=== PATIENT | female | born 1955 | race Caucasian/White ===

== ENCOUNTER 2021-03-08 10:01 | Day surgery (SDC) | payer MEDICAID, SELFPAY ==
[2021-03-01 09:01] VITALS: BMI 33.3
--- NOTE | 2021-03-04 14:09 | MHC.SHP ---
Pre-Procedural Eval Section A Date of Service: 03/04/21 The patient is an INPATIENT: No Changes since office visit: No Cold of Flu in the past 2 weeks, No New Medical Problems, No Changes in Medication and No Patient answered all questions The History & Physical has been completed within 30 days and I have reviewed it.: Yes Section B Chief Complaint: cataract right eye Allergies: Allergies Allergy/AdvReac Type Severity Reaction Status Date / Time ipratropium Allergy Severe throat Verified 03/01/21 08:59 closed (from nasal spray) latex Allergy Intermediate Rash Verified 03/01/21 08:59 escitalopram AdvReac Intermediate Diarrhea Verified 03/01/21 08:59 lactose AdvReac Intermediate Gastrointestinal Verified 03/01/21 08:59 Upset Plan Diagnosis/Plan: Unchanged I have reviewed the history and physical and performed a pertinent physical examination on my patient. No changes have occurred unless specified.
--- NOTE | 2021-03-05 14:03 | HO.ANESPROP2 ---
Documented by User: Fadia Proctor NP 03/05/21 14:03 HPI - Anesthesia Eval Consult details Narrative: 65yo F for Right Cataract Multifocal with IOL Insertion PCP cleared No previous cataract on file PMFSH Past Medical History Medical History (Updated 03/01/21 @ 09:01 by Terri Burger RN) Anxiety COVID-19 vaccine series completed Elevated cholesterol HTN (hypertension) Osteoarthritis Phenylketonuria (PKU) Pre-diabetes Surgical History Surgical History (Updated 03/01/21 @ 09:01 by Terri Burger RN) History of bunionectomy History of total right hip arthroplasty Social History Social History Are you a primary hospice care transitions coordinator to a significant other at home: No Do you presently have visiting nurse or other home services: No Patient Tobacco Use Status: Never used Tobacco Use of substances other than those prescribed or required for medical reasons: No Have you been hit, kicked, punched, or otherwise hurt by someone within the past year? If so, by whom?: No Are you DNR?: No Advance Directives Information Provided: Yes (informational brochure mailed-advised to bring HCP copy if has) Advance Directives on File: No Recently lost weight without trying: No Eating poorly because of decreased appetite: No Nutrition Risks: No Nutritional Risk Poor oral hygiene: No Meds Allergies Allergy/AdvReac Type Severity Reaction Status Date / Time ipratropium Allergy Severe throat Verified 03/08/21 11:29 closed (from nasal spray) latex Allergy Intermediate Rash Verified 03/08/21 11:29 Penicillins [PCN] AdvReac Severe Diarrhea Verified 03/08/21 11:29 escitalopram AdvReac Intermediate Diarrhea Verified 03/08/21 11:29 lactose AdvReac Intermediate Gastrointestinal Verified 03/08/21 11:29 Upset Home Medications Medication Instructions Recorded Confirmed Last Taken Type acetaminophen 325 mg tablet 650 mg PO QID 02/26/21 03/01/21 Unknown History amlodipine 10 mg tablet 10 mg PO DAILY 02/26/21 03/01/21 Unknown History atorvastatin 10 mg tablet 10 mg PO DAILY 02/26/21 03/01/21 Unknown History cetirizine 10 mg tablet 10 mg PO DAILY 02/26/21 03/01/21 Unknown History cyanocobalamin (vitamin B-12) 1,000 mcg PO DAILY 02/26/21 03/01/21 Unknown History 1,000 mcg tablet (Vitamin B-12) docusate sodium 100 mg capsule 100 mg PO BID 02/26/21 03/01/21 Unknown History (Colace) fluticasone propionate 50 2 spray INTRANASAL DAILY 02/26/21 03/01/21 Unknown History mcg/actuation nasal spray,suspension omeprazole 20 mg tablet,delayed 20 mg PO DAILY 02/26/21 03/08/21 03/08/21 07:30 History release paroxetine HCl 10 mg tablet 10 mg PO DAILY 02/26/21 03/01/21 Unknown History polyethylene glycol 3350 17 gram 17 g PO DAILY 02/26/21 03/01/21 Unknown History oral powder packet (Miralax) sennosides 8.6 mg tablet (senna) 8.6 mg PO BEDTIME 02/26/21 03/01/21 Unknown History Exam Exam Date and Time: March 05, 2021 1403 Height,Weight and Vital Signs: Height 5 ft 1 in Weight 80 kg Assessment and Plan Assessment Anesthesia Assessment: Chart Reviewed Documented by User: Renzo Jarvis MD 03/08/21 11:50 [facility] Past Medical History Medical History (Updated 03/01/21 @ 09:01 by Terri Burger RN) Anxiety COVID-19 vaccine series completed Elevated cholesterol HTN (hypertension) Osteoarthritis Phenylketonuria (PKU) Pre-diabetes Surgical History Surgical History (Updated 03/01/21 @ 09:01 by Terri Burger RN) History of bunionectomy History of total right hip arthroplasty Social History Social History Are you a primary hospice care transitions coordinator to a significant other at home: No Do you presently have visiting nurse or other home services: No Patient Tobacco Use Status: Never used Tobacco Use of substances other than those prescribed or required for medical reasons: No Have you been hit, kicked, punched, or otherwise hurt by someone within the past year? If so, by whom?: No Are you DNR?: No Advance Directives Information Provided: Yes (informational brochure mailed-advised to bring HCP copy if has) Advance Directives on File: No Recently lost weight without trying: No Eating poorly because of decreased appetite: No Nutrition Risks: No Nutritional Risk Poor oral hygiene: No Meds Allergies Allergy/AdvReac Type Severity Reaction Status Date / Time ipratropium Allergy Severe throat Verified 03/08/21 11:29 closed (from nasal spray) latex Allergy Intermediate Rash Verified 03/08/21 11:29 Penicillins [PCN] AdvReac Severe Diarrhea Verified 03/08/21 11:29 escitalopram AdvReac Intermediate Diarrhea Verified 03/08/21 11:29 lactose AdvReac Intermediate Gastrointestinal Verified 03/08/21 11:29 Upset Home Medications Medication Instructions Recorded Confirmed Last Taken Type acetaminophen 325 mg tablet 650 mg PO QID 02/26/21 03/01/21 Unknown History amlodipine 10 mg tablet 10 mg PO DAILY 02/26/21 03/01/21 Unknown History atorvastatin 10 mg tablet 10 mg PO DAILY 02/26/21 03/01/21 Unknown History cetirizine 10 mg tablet 10 mg PO DAILY 02/26/21 03/01/21 Unknown History cyanocobalamin (vitamin B-12) 1,000 mcg PO DAILY 02/26/21 03/01/21 Unknown History 1,000 mcg tablet (Vitamin B-12) docusate sodium 100 mg capsule 100 mg PO BID 02/26/21 03/01/21 Unknown History (Colace) fluticasone propionate 50 2 spray INTRANASAL DAILY 02/26/21 03/01/21 Unknown History mcg/actuation nasal spray,suspension omeprazole 20 mg tablet,delayed 20 mg PO DAILY 02/26/21 03/08/21 03/08/21 07:30 History release paroxetine HCl 10 mg tablet 10 mg PO DAILY 02/26/21 03/01/21 Unknown History polyethylene glycol 3350 17 gram 17 g PO DAILY 02/26/21 03/01/21 Unknown History oral powder packet (Miralax) sennosides 8.6 mg tablet (senna) 8.6 mg PO BEDTIME 02/26/21 03/01/21 Unknown History Exam Airway Mallampati Class: III TM Dist: >3cm Neck ROM: Full
[2021-03-08 11:33] VITALS: BP 138/77; PULSE 70; RESP 16; TEMP 36.8; O2SAT 99
[2021-03-08] MEDS: Tetracaine HCl/PF 0.5% Oph Sol 4 ML DROPS 1 DROP EYE-RIGHT (11:50)
[2021-03-08] MEDS: Lactated Ringers 500 ML 50 ML IV (11:52)
[2021-03-08] MEDS: Tropicamide 1 % Ophth Sol 3 ML BTL 1 DROP EYE-RIGHT ×3 (11:52→12:04)
[2021-03-08] MEDS: Phenylephrine HCL 2.5% Oph SoL 2 ML BOTTLE 1 DROP EYE-RIGHT ×3 (11:56→12:08)
--- NOTE | 2021-03-08 13:10 | HO.PNOPHT ---
Ophthalmology Procedure Procedure Date of Service: 03/08/21 Ophthalmology Viscoelastic: Healsophy Patinot Dual Pack Pro Ophthalmology Lenses: TECGABRIELLA [id number] (22) Procedure Notes: PREOPERATIVE DIAGNOSIS: Decreased visual acuity right eye secondary to cataract POSTOPERATIVE DIAGNOSIS: Same PROCEDURE: Right cataract extraction with intraocular lens insertion SURGEON: Chico Espana M.D. ANESTHESIA: Topical/MAC ESTIMATED BLOOD LOSS: None COMPLICATIONS: None After obtaining informed consent, the patient was brought to the operating room suite and placed in the supine position. After adequate sedation per anesthesia, topical drops of Tetracaine were given to the right eye. The eye was then prepped and draped in the usual sterile fashion. The operating room microscope was then positioned over the operative eye and a lid speculum placed. A paracentesis was created. Viscoelastic was then instilled into the anterior chamber. A three plane incision was then created temporally, utilizing a 2.85 mm keratome. Capsulotomy forceps were then utilized to create a circular tear capsulotomy. Hydrodissection and hydrodelineation were carried out until adequate mobilization of the nucleus occurred. Phacoemulsification was then utilized to remove the dense central nucleus followed by removal of the cortical material utilizing the automated aspiration irrigation unit. Viscoelastic was instilled into the posterior capsular bag followed by placement of a posterior chamber intraocular lens without difficulty. The residual Viscoelastic was then removed utilizing the automated IA machine. The wound was checked and found to be watertight. The patient tolerated the procedure well and the lid speculum was removed. Intracameral injection of Vigamox 0.1 mL followed by a subtenon injection of Kenalog-40 0.2 mL were administered. The patient will be seen in the a.m.
[2021-03-08 13:38] VITALS: BP 138/75; PULSE 78; RESP 18; TEMP 36.1; O2SAT 97
== END 2021-03-08 13:59 | disposition home or self-care (01) ==
PROVIDERS: Visit Provider Ophthalmology
PROC: (CPT 66985; principal; 2021-03-08 12:50)
DX: H25.11 Age-related nuclear cataract, right eye (principal); H52.4 Presbyopia; I10 Essential (primary) hypertension; R73.03 Prediabetes; R26.89 Other abnormalities of gait and mobility; Z96.641 Presence of right artificial hip joint; Z79.899 Other long term (current) drug therapy; Z91.040 Latex allergy status; Z88.0 Allergy status to penicillin
CPT/HCPCS: 66984; J2250; J3010; J3300; V2632

== ENCOUNTER 2021-03-22 08:04 | Day surgery (SDC) | payer MEDICAID, SELFPAY ==
[2021-03-01 09:04] VITALS: BMI 33.3
--- NOTE | 2021-03-18 13:44 | MHC.SHP ---
Pre-Procedural Eval Section A Date of Service: 03/18/21 The patient is an INPATIENT: No Changes since office visit: No Cold of Flu in the past 2 weeks, No New Medical Problems, No Changes in Medication and No Patient answered all questions The History & Physical has been completed within 30 days and I have reviewed it.: Yes Section B Chief Complaint: cataract left eye Allergies: Allergies Allergy/AdvReac Type Severity Reaction Status Date / Time ipratropium Allergy Severe throat Verified 03/08/21 11:29 closed (from nasal spray) latex Allergy Intermediate Rash Verified 03/08/21 11:29 Penicillins [PCN] AdvReac Severe Diarrhea Verified 03/08/21 11:29 escitalopram AdvReac Intermediate Diarrhea Verified 03/08/21 11:29 lactose AdvReac Intermediate Gastrointestinal Verified 03/08/21 11:29 Upset Plan Diagnosis/Plan: Unchanged I have reviewed the history and physical and performed a pertinent physical examination on my patient. No changes have occurred unless specified.
[2021-03-22 08:43] VITALS: BP 185/91; PULSE 81; RESP 16; TEMP 36.2; O2SAT 98
[2021-03-22] MEDS: Tetracaine HCl/PF 0.5% Oph Sol 4 ML DROPS 1 DROP EYE-LEFT (08:46)
[2021-03-22] MEDS: Lactated Ringers 500 ML 50 ML IVCONT (08:46)
[2021-03-22] MEDS: Tropicamide 1 % Ophth Sol 3 ML BTL 1 DROP EYE-LEFT ×3 (08:47→08:59)
[2021-03-22] MEDS: Phenylephrine HCL 2.5% Oph SoL 2 ML BOTTLE 1 DROP EYE-LEFT ×3 (08:50→09:02)
--- NOTE | 2021-03-22 09:38 | HO.ANESPROP2 ---
HPI - Anesthesia Eval Consult details Narrative: left eye cataract [facility] Past Medical History Medical History (Updated 03/01/21 @ 09:01 by Terri Burger RN) Anxiety COVID-19 vaccine series completed Elevated cholesterol HTN (hypertension) Osteoarthritis Phenylketonuria (PKU) Pre-diabetes Family History Family history of problems with anesthesia: No Surgical History Surgical History (Updated 03/01/21 @ 09:01 by Terri Burger RN) History of bunionectomy History of total right hip arthroplasty History of Problems with Anesthesia: No Social History Social History Are you a primary healthcare translator to a significant other at home: No Do you presently have visiting nurse or other home services: No Patient Tobacco Use Status: Never used Tobacco Use of substances other than those prescribed or required for medical reasons: No Have you been hit, kicked, punched, or otherwise hurt by someone within the past year? If so, by whom?: No Are you DNR?: No Advance Directives Information Provided: Yes (informational brochure mailed-advised to bring HCP copy if has) Advance Directives on File: No Recently lost weight without trying: No Eating poorly because of decreased appetite: No Nutrition Risks: No Nutritional Risk Poor oral hygiene: No Meds Allergies Allergy/AdvReac Type Severity Reaction Status Date / Time ipratropium Allergy Severe throat Verified 03/08/21 11:29 closed (from nasal spray) latex Allergy Intermediate Rash Verified 03/08/21 11:29 Penicillins [PCN] AdvReac Severe Diarrhea Verified 03/08/21 11:29 escitalopram AdvReac Intermediate Diarrhea Verified 03/08/21 11:29 lactose AdvReac Intermediate Gastrointestinal Verified 03/08/21 11:29 Upset Active Medications: Current Medications Lactated Ringer's (Lr) 500 mls @ 50 mls/hr IVCONT .Q10H LUIS Last Admin: 03/22/21 08:46 Dose: 50 mls/hr Documented by: Povidone Iodine (Povidone Iodine 5 % Ophth Soln 30 Ml Bottle) 1 appl EYE-LEFT PREOP PRN PRN Reason: Pre-Op Surgical Implant Prophy Home Medications Medication Instructions Recorded Confirmed Last Taken Type acetaminophen 325 mg tablet 650 mg PO QID 02/26/21 03/01/21 Unknown History amlodipine 10 mg tablet 10 mg PO DAILY 02/26/21 03/01/21 Unknown History atorvastatin 10 mg tablet 10 mg PO DAILY 02/26/21 03/01/21 Unknown History cetirizine 10 mg tablet 10 mg PO DAILY 02/26/21 03/01/21 Unknown History cyanocobalamin (vitamin B-12) 1,000 mcg PO DAILY 02/26/21 03/01/21 Unknown History 1,000 mcg tablet (Vitamin B-12) docusate sodium 100 mg capsule 100 mg PO BID 02/26/21 03/01/21 Unknown History (Colace) fluticasone propionate 50 2 spray INTRANASAL DAILY 02/26/21 03/01/21 Unknown History mcg/actuation nasal spray,suspension omeprazole 20 mg tablet,delayed 20 mg PO DAILY 02/26/21 03/08/21 03/08/21 07:30 History release paroxetine HCl 10 mg tablet 10 mg PO DAILY 02/26/21 03/01/21 Unknown History polyethylene glycol 3350 17 gram 17 g PO DAILY 02/26/21 03/01/21 Unknown History oral powder packet (Miralax) sennosides 8.6 mg tablet (senna) 8.6 mg PO BEDTIME 02/26/21 03/01/21 Unknown History Exam Exam Date and Time: March 22, 2021 0938 Height,Weight and Vital Signs: Height 5 ft 1 in Weight 80 kg Last Vital Signs Temp 97.1 F 03/22/21 08:43 Pulse 81 03/22/21 08:43 Resp 16 03/22/21 08:43 BP 185/91 H 03/22/21 08:43 Pulse Ox 98 03/22/21 08:43 Airway Mallampati Class: II TM Dist: >3cm Neck ROM: Full Loose/Missing/Broken Teeth: No Heart: [id number] Lungs: cta b/l Assessment and Plan Assessment Anesthesia Assessment: Anesthesia Plan Discussed Final Anesthetic Review Family History of Problems with Anesthesia: No History of Problems with Anesthesia: No NPO: Yes ASA Class: III Final Preanesthetic Review: No Changes in Pt Med Stat, Meds/Allgs Chart Reviewed, Consent Obtained/Reviewed and Anes Risks/Benef Reviewed Patient Risk: Intermediate Procedure Risk: Low Assessment/Block/Sedation in SS: Assess/Block/Sedation-SS Anesthetic Plan Anesthetic Plan: MAC: and Agree w/ Assess. and Plan Disposition: Standard PACU
--- NOTE | 2021-03-22 10:15 | HO.PNOPHT ---
Ophthalmology Procedure Procedure Date of Service: 03/22/21 Ophthalmology Viscoelastic: Healon Duet Dual Pack Pro Ophthalmology Lenses: TECGABRIELLA [id number] (23) Procedure Notes: PREOPERATIVE DIAGNOSIS: Decreased visual acuity left eye secondary to cataract POSTOPERATIVE DIAGNOSIS: Same PROCEDURE: Left cataract extraction with intraocular lens insertion SURGEON: Chico Espana M.D. ANESTHESIA: Topical/MAC ESTIMATED BLOOD LOSS: None COMPLICATIONS: None After obtaining informed consent, the patient was brought to the operation room suite and placed in the supine position. After adequate sedation per anesthesia, topical drops of Tetracaine were given to the left eye. The eye was then prepped and draped in the usual sterile fashion. The operating room microscope was then positioned over the operative eye and a lid speculum placed. A paracentesis was created. Viscoelastic was then instilled into the anterior chamber. A three plane incision was then created temporally, utilizing a 2.85 mm keratome. Capsulotomy forceps were then utilized to create a circular tear capsulotomy. Hydrodissection and hydrodelineation were carried out until adequate mobilization of the nucleus occurred. Phacoemulsification was then utilized to remove the dense central nucleus followed by removal of the cortical material utilizing the automated aspiration irrigation unit. Viscoat elastic was instilled into the posterior capsular bag followed by placement of a posterior chamber intraocular lens without difficulty. The residual Viscoat elastic was then removed utilizing the automated IA machine. The wound was check and found to be watertight. The patient tolerated the procedure well and the lid speculum was removed. Intracameral injection of Vigamox 0.1 mL followed by a subtenon injection of Kenalog-40 0.2 mL were administered. The patient will be seen in the a.m.
[2021-03-22 10:45] VITALS: BP 170/87; PULSE 77; RESP 16; TEMP 36.1; O2SAT 97
== END 2021-03-22 10:48 ==
LOC: HO.SSS 08:05
PROVIDERS: Visit Provider Ophthalmology
PROC: (CPT 66985; principal; 2021-03-22 10:00)
DX: H25.12 Age-related nuclear cataract, left eye (principal); H52.4 Presbyopia; J30.9 Allergic rhinitis, unspecified; E78.5 Hyperlipidemia, unspecified; I10 Essential (primary) hypertension; R73.03 Prediabetes; Z79.899 Other long term (current) drug therapy; Z88.0 Allergy status to penicillin; Z91.040 Latex allergy status
CPT/HCPCS: 66984; J2250; J3010; J3300; V2632